=== PATIENT | female | born 2005 | race African-American/Black ===

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

== ENCOUNTER 2023-03-11 13:25 | Outpatient (CLI) | payer BC, SELFPAY ==
--- NOTE | ~2023-03-11 | MR_ITS ---
MRI of the left knee Clinical history: Pain Technique: Coronal proton density and proton density-weighted images, sagittal proton-density and T2 fat-sat images, and axial proton-density fat-saturated images were acquired. Findings: There is complete tear at the proximal to midportion of the ACL. Posterior cruciate ligamen t is intact. Medial collateral ligament and the lateral collateral ligament complex are intact. Popli teus tendon is intact. There is an oblique tear of the posterior horn of the medial meniscus. No lateral meniscal tear seen. There are focal transchondral impaction injuries at the central aspect of the lateral femoral condyle and posterolateral tibial plateau, consistent with recent pivot shift injury. Additional focal contu claus present at the posterior medial tibial plateau. Patellofemoral articular cartilage is well prese rved. Extensor mechanism is intact. Small joint effusion is present. No Aleman's cyst. Impression: Complete ACL tear at the proximal to midportion. Oblique tear of the posterior horn of the medial meniscus. Transchondral impaction injuries at the central aspect of the lateral femoral condyle and posterolate ral tibial plateau, consistent with recent pivot shift injury. Additional focal bone contusion at the posterior medial tibial plateau. Small joint effusion. Reviewed, dictated and finalized at [facility]. Impression: Complete ACL tear at the proximal to midportion. Oblique tear of the posterior horn of the medial meniscus. Transchondral impaction injuries at the central aspect of the lateral femoral c ondyle and posterolateral tibial plateau, consistent with recent pivot shift in [facility]. Additional focal bone contusion at the posterior medial tibial plateau. Small joint effusion.
== END 2023-03-11 13:26 | disposition home or self-care (01) ==
PROVIDERS: PCP Pediatrics; Visit Provider Orthopaedic Surgery
DX: S83.512A Sprain of anterior cruciate ligament of left knee, initial encounter (principal); X58.XXXA Exposure to other specified factors, initial encounter; M25.462 Effusion, left knee
CPT/HCPCS: 73721

== ENCOUNTER 2024-11-08 09:57 | Emergency (ER) | payer BC, SELFPAY ==
--- NOTE | ~2024-11-08 | XR_ITS ---
Right foot Technique: AP, oblique, and lateral views were obtained. Clinical History: Injury Findings: No acute fracture or dislocation is seen. Osseous alignment is anatomic. Joint spaces are p reserved without erosive or degenerative change. Soft tissues are unremarkable. Impression: Unremarkable right foot radiographs. Reviewed, dictated and finalized at location . Impression: Unremarkable right foot radiographs.
--- NOTE | 2024-11-08 09:59 | ED.LOWEXIN ---
HPI - Extremity Injury (Lower) General Chief Complaint: Extremity Injury, Lower Stated Complaint: RT Foot Injury Time Seen by Provider: 11/08/24 09:59 Source: patient Mode of arrival: ambulatory Limitations: no limitations History of Present Illness HPI Narrative: Shweta is a 19-year-old female patient presenting to the clinic today with complaints of right foot injury 2 days. She reports she was lifting weights and dropped a 45 lb weight plate on the top of her right foot. Is having pain to the 1st and 2nd metatarsals. Pain is worse with movement. Rates her pain as 6/10 with movement and bearing weight. Has been taking ibuprofen and icing the area Related Data Allergies Allergy/AdvReac Type Severity Reaction Status Date / Time No Known Allergies Allergy Verified 11/08/24 10:05 Review of Systems Review of Systems: Pertinent positives per HPI. Patient denies any fever, chills, rash, headache, visual changes, dizziness, cough, runny nose, sore throat, shortness of breath, chest pain, palpitations, nausea, vomiting, diarrhea, constipation, abdominal pain, or any urinary issues. [facility] Past Medical History Medical History Patient denies significant medical history Social History Social History Smoking status: Never smoker Gender identity (if verbalized by the patient): Female Comments At the time of my signature, I reviewed and agree with the nursing past medical, surgical, social, and family history. There is no relevant family history pertinent to the patient complaint. Exam Narrative: General: Well-developed, well nourished, in no apparent distress Head: Normocephalic, atraumatic. Cardio: Regular rate and rhythm, s1 and s2 normal, no murmur appreciated. Resp: Clear to auscultation bilaterally, no rhonchi, rales, wheezing or rubs. Musculoskeletal: No deformity, mild bruising noted over the dorsal medial foot, tender to palpation over the 1st and 2nd metatarsals, and some discomfort with flexion and extension of the toes as well as dorsal flexion and plantar flexion of the right foot, grossly normal range of motion, muscle strength strong and equal, peripheral pulse strong, no edema, no cyanosis, normal gait and station Course Course Emergency Course: Portions of this record may have been created with voice recognition software. Level of Care: Express Care Visit Vital Signs Vital signs: Vital Signs Temperature 36.8 C 11/08/24 10:06 Pulse Rate 67 11/08/24 10:06 Respiratory Rate 18 11/08/24 10:06 Blood Pressure 127/69 11/08/24 10:06 Pulse Oximetry 99 11/08/24 10:06 Oxygen Delivery Room Air 11/08/24 10:06 Temperature 36.8 C 11/08/24 10:06 Pulse Rate 67 11/08/24 10:06 Respiratory Rate 18 11/08/24 10:06 Blood Pressure 127/69 11/08/24 10:06 Pulse Oximetry 99 11/08/24 10:06 Oxygen Delivery Room Air 11/08/24 10:06 Vital signs reviewed MDM - Extremity Injury (Lower) MDM Narrative Medical decision making narrative: At the time of visit patient is resting comfortably on the exam table. Patient appears to be nontoxic. Diagnostics: X-ray of the right foot was performed and was negative in the clinic today. Plan: Suspect patient has a foot contusion. Supportive measures were discussed with the patient and they voiced understanding discharge instructions and agrees to treatment plan. Return precautions reviewed Differential Diagnosis Differential diagnosis: Likely fracture of toe and other (Foot fracture, foot sprain, contusion, soft tissue injury, tendinitis) Imaging Data Radiologist's impression: ITS Impressions Foot X-Ray 11/08/24 10:21 Impression: Unremarkable right foot radiographs. Discharge Plan Discharge Clinical Impression: Contusion of foot Qualifiers: Encounter type: initial encounter Laterality: right Qualified Code(s): S90.31XA - Contusion of right foot, initial encounter Patient Disposition: Home Condition: Stable Instructions: Antibiotic Form, Foot Contusion (ED) Additional Instructions: X-rays negative for any sign of fracture or malalignment of the right foot. Rest, ice, and elevate Tylenol/motrin for pain as discussed. Gradually bear weight Follow up with your PCP if symptoms persist more than 1 week. Patient Language: Yakut Prescriptions: No Action famotidine [Pepcid] 20 mg tablet 20 mg PO DAILY Qty: 14 0RF ibuprofen [IBU] 600 mg tablet 600 mg PO Q6H PRN (Reason: pain) Qty: 20 0RF ondansetron 4 mg tablet,disintegrating 4 mg PO Q6H PRN (Reason: nausea and vomiting) Qty: 10 0RF prochlorperazine maleate [Compazine] 5 mg tablet 5 mg PO Q8H PRN (Reason: nausea and vomiting) Qty: 7 0RF Follow-up/Referrals: Davi,MD Edouard [Primary Care Provider] - Time of Disposition: 10:26 Quality NIHSS Nursing Documentation ED NIHSS nursing documentation: reviewed/agree
[2024-11-08 10:06] VITALS: BP 127/69; PULSE 67; RESP 18; TEMP 36.8; O2SAT 99
--- OUTSIDE RECORDS SUMMARY | 2024-11-08 11:13 | XMS_ITS | Clinical Summary ---
Author Organization [facility] Address [address] [place] [address] Care Team Providers Care Wooden Furniture Polisher Name Role Phone Andrew Roberts MD Unavailable [phone] Edouard Tomlinson MD Primary Care Provider [phone] Allergies No known active allergies Medications albuterol HFA (PROVENTIL HFA,VENTOLIN HFA,PROAIR HFA) 90 mcg/actuation inhaler Inhale 1-2 puffs 5 Active aspirin 325 mg tabletIndicatio ns:Complete tear of right ACL, subsequent encounter Take 1 tablet (325 mg total) by mouth 2 (two) times a day 28 tablet 3 Active Additional Information Patient not taking.Reported on 03/31/2024 ondansetron (ZOFRAN) 4 mg tabletIndicatio ns:Complete tear of right ACL, subsequent encounter Take 1 tablet (4 mg total) by mouth every 8 (eight) hours as needed for nausea or vomiting 20 tablet 3 Active Additional Information Patient not taking.Reported on 03/31/2024 medroxyPROGESTE Osmin 150 mg/mL injection Inject 1 mL (150 mg total) into the muscle as instructed every 3 (three) months Active naloxone (NARCAN) 4 mg/actuation spray,non-aeros ol Administer 1 spray into affected nostril(s) as needed for opioid reversal or respiratory depression Call 911. Administer a single spray in one nostril. Repeat every 3 minutes as needed if no or minimal response. 1 each 3 Active Additional Information Patient not taking.Reported on 02/15/2024 ibuprofen (ADVIL,MOTRIN) 400 mg tablet Take 1 tablet (400 mg total) by mouth every 6 (six) hours as needed for pain Active aspirin 325 mg tabletIndicatio ns:Chronic pain of left knee Take 1 tablet (325 mg total) by mouth 2 (two) times a day 28 tablet 4 Active Additional Information Patient not taking.Reported on 03/31/2024 ondansetron (ZOFRAN) 4 mg tabletIndicatio ns:Chronic pain of left knee Take 1 tablet (4 mg total) by mouth every 8 (eight) hours as needed for nausea or vomiting 20 tablet 4 Active Additional Information Patient not taking.Reported on 03/31/2024 HYDROcodone-licha taminophen (NORCO) 7.5-325 mg per tabletIndicatio ns:Pain Take 1 tablet every 6 hours as needed for severe pain. 28 tablet 4 Active Additional Information Patient not taking.Reported on 03/31/2024 traMADoL (ULTRAM) 50 mg tabletIndicatio ns:Chronic pain of left knee Take 1 tablet (50 mg total) by mouth every 6 (six) hours as needed for pain (as needed for moderate pain) 28 tablet 4 Active Additional Information Patient not taking.Reported on 03/31/2024 Active Problems Problem Noted Date Diagnosed Date Bucket-handle tear of latera l meniscus of left knee as current injury 02/14/2024 S/P medial meniscus repair of left knee 05/11/20 23 Aftercare for anterior cruciate ligament (ACL) r epair 05/11/2023 Complete tear of right ACL, subsequent encounter 05/11/2023 Chronic pain of left knee 05/11/2023 Sprain of anterior cruciate ligament of left kne e 03/17/2023 Acute tear of posterior aspe ct of medial meniscus of left knee 03/17/2023 Closed Salter-Hu type I fracture of distal end of right fibula 07/06/2016 Phalanx fracture, foot 03/21/2013 Encounters Date Type Department Care Team Description 10/17/2024 Telephone [facility] Orthopedics and Sports Medicine [facility] [address] [address] Andrew Roberts MD from Last 3 Months Surgical History Surgery Date Site/Laterality Comments TONSILLECTOMY WISDOM TOOTH EXTRACTION ARTHROSCOPIC REPAIR ACL 03/30/2023 Left Left knee arthroscopy with anterior cruciate ligament reconstruction with patella tendon autograft Medical History Medical History Date Comments Asthma seasonal Chronic pain of left knee PONV (postoperative nausea and vomiting) Last menstrual period (LMP) > 10 days ago 12/15/23 Social History Tobacco Use Types Packs/Day Years Used Date Smoking Tobacco: Never Smokeless Tobacco: Never Tobacco Cessation:Counseling Given: Not Answered AUDIT-C Answer Date Recorded Q1: How often do you have a drink containing alc ohol? Never 02/16/2024 Q2: How many drinks containi ng alcohol do you have on a typical day when you are drinking? 1 or 2 02/16/2024 Q3: How often do you have six or more drinks on one occasion? Never 02/16/2024 Personal Safety Answer Date Recorded Have you ever been in or are you currently in a harmful physical or emotional relationship or is someone making you feel afraid or unsafe? 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 Gender Identity Not on file Sexual Orientation Not on file Obstetrics History Last Filed Vital Signs Vital Sign Reading Time Taken Comments Blood Pressure 125/76 02/16/2024 11:40 AM CDT Pulse 52 02/16/2024 11:40 AM CDT Temperature 37.1 C (98.7 F) 02/16/2024 9:48 AM CDT Respiratory Rate 16 02/16/2024 11:40 AM CDT Oxygen Saturation 98% 02/16/2024 11:40 AM CDT Inhaled Oxygen Concentration - - Weight 71.7 kg (158 lb) 03/31/2024 11:38 AM CDT Height 177.8 cm (5' 10) 03/31/2024 11:38 AM CDT Body Mass Index 22.67 03/31/2024 11:38 AM CDT Plan of Treatment Health Maintenance Due Date Last Done Comments Cervical Cancer Screening 2003 Depression Screening 2003 Hepatitis C Screening 2003 Meningococcal B Vaccine (2 o f 2 - Bexsero SCDM 2-dose series) 11/07/2019 05/08/2019 Regular Well Visit/Exam 18-64 2021 DTaP/Tdap/Td Vaccine (7 - Td or Tdap) 01/03/2024 01/02/2014, 10/03/2008, 05/12/2005, Additional history exists Influenza Vaccine (Season Ended) 2025 03/05/20 14, 04/04/2013 Hepatitis B Screening Completed 2003 , 2003, 2003 Pneumococcal vaccine <65 Completed 005, 05/12/2005, 03/26/2004, Additional history exists Varicella Vaccines Completed 01/02/2014, 03/26/2004 HPV Vaccines Completed 07/06/2014, 10/2013, 01/02/2014 Meningococcal Vaccine Completed 05/08/2019, 015 Medical Devices Implanted Type Area Biofuels Technology Manager Device Identifier Shelf Expiration Date Model / Serial / Lot [employer] Meniscal Cinch Curve Device Suturing Sterile Disposable Ar-4500 - [id number] Implanted:Qty: 1 on 03/30/2023 by Andrew Roberts MD at [facility] [employer] [id number] 04/29/2025 AR-4500 / / [id number] [employer] Meniscal Cinch Curve Device Suturing Sterile Disposable Ar-4500 - [id number] Implanted:Qty: 1 on 03/30/2023 by Andrew Roberts MD at [facility] [employer] [id number] 06/30/2025 AR-4500 / / [employer] Meniscal Cinch Curve Device Suturing Sterile Disposable Ar-4500 - [id number] Implanted:Qty: 1 on 03/30/2023 by Andrew Roberts MD at [facility] [employer] [id number] 07/28/2026 AR-4500 / / [id number] [employer] 8mm 20mm Cannulated Sheath Acl Pcl Screw Interference Titanium Ar-1380e - [id number] Implanted:Qty: 1 on 03/30/2023 by Andrew Roberts MD at [facility] [employer] [id number] 06/30/2027 AR-1380E / / [id number] [employer] Bio-Interference 9mm 20mm Cannulated Acl Pcl Screw Interference Ar-1390 - [id number] Implanted:Qty: 1 on 03/30/2023 by Andrew Roberts MD at [facility] [employer] [id number] 08/28/2026 AR-1390 / / Insurance [facility] PLAN COMMERCIAL GENERIC Member Subscriber Plan / Payer (Ef fective 2022-Present) Name:Shweta Davis Member ID:[id number] 4 Relation to Subscriber:Self Name:Shweta Davis Subscriber ID:[id number] Payer ID:[id number] Group ID:Not on file Type:COMMERCIAL Address: [facility]IC [employer]IDENT MEDICAL [facility]GRAM [address] [address] [place] [address] IDPA IDPA Care Teams Wooden Furniture Polisher Relationship Specialty Start Date End Date Edouard Tomlinson MD [address] [facility] [place] [address] PCP - General Family Medicine 01/05/24 Andrew Roberts MD [address] [place] [address] Consulting Physician Orthopedic Surgery 03/30/23
--- OUTSIDE RECORDS SUMMARY | 2024-11-08 11:13 | XMS_ITS | Referral Summary ---
Author Organization [facility] [address] Address [address] [place] [address] Care Team Providers Care Adzing And Boring Machine Helper Name Role Phone Andrew Roberts MD Unavailable Edouard Tomlinson MD Primary Care Provider [phone] Encounters Date Type Department Care Team Description 10/17/2024 Telephone [facility] Orthopedics and Sports Medicine [address] [place] [phone] Andrew Roberts MD from Last 3 Months Allergies No known active allergies Medications albuterol [...] right fibula 07/06/2016 Phalanx fracture, foot 03/21/2013 Social History Tobacco Use Types Packs/Day Years [...] on file 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 Gender Identity Not on file Sexual Orientation Not on file Last Filed Vital Signs Vital Sign Reading [...] 03/31/2024 11:38 AM CDT Plan of Treatment Not on file Medical Devices Implanted Type Area Forensic Psychiatrist Device Identifier Shelf Expiration Date Model / Serial / Lot [employer] Meniscal Cinch Curve Device Suturing Sterile Disposable Ar-4500 - [id number] Implanted:Qty: 1 on 03/30/2023 by Andrew Roberts MD at [facility] [employer] [id number] 04/29/2025 AR-4500 / / [id number] [employer] Meniscal Cinch Curve Device Suturing Sterile Disposable Ar-4500 - [id number] Implanted:Qty: 1 on 03/30/2023 by Andrew Roberts MD at [facility] [employer] [id number] 06/30/2025 AR-4500 / / [employer] Meniscal Cinch Curve Device Suturing Sterile Disposable Ar-4500 - [id number] Implanted:Qty: 1 on 03/30/2023 by Andrew Roberts MD at [facility] [employer] [id number] 07/28/2026 AR-4500 / / [id number] [employer] 8mm 20mm Cannulated Sheath Acl Pcl Screw Interference Titanium Ar-1380e - [id number] Implanted:Qty: 1 on 03/30/2023 by Andrew Roberts MD at [facility] [employer] [id number] 06/30/2027 AR-1380E / / [id number] [employer] Bio-Interference 9mm 20mm Cannulated Acl Pcl Screw Interference Ar-1390 - [id number] Implanted:Qty: 1 on 03/30/2023 by Andrew Roberts MD at [facility] [employer] [id number] 08/28/2026 AR-1390 / / Insurance [facility] PLAN COMMERCIAL GENERIC Member Subscriber Plan / Payer (Ef fective 2022-Present) Name:Shweta Davis Member ID:[id number] 4 Relation to Subscriber:Self Name:Shweta Davis Subscriber ID:[id number] Payer ID:[id number] Group ID:Not on file Type:COMMERCIAL Address: ATTN [facility] [employer] MEDICAL [employer]GRAM [address] [address] [place] [address] IDPA IDPA Care Teams Adzing And Boring Machine Helper Relationship Specialty Start Date End Date Edouard Tomlinson MD [address] [place] [address] [place] [address] PCP - General Family Medicine 01/05/24 Andrew Roberts MD [facility] [place] [address] Consulting Physician Orthopedic Surgery 03/30/23
== END 2024-11-08 10:28 | disposition home or self-care (01) ==
PROVIDERS: Emergency Provider Nurse Practitioner Family; PCP Family Medicine
DX: S90.31XA Contusion of right foot, initial encounter (principal); W20.8XXA Other cause of strike by thrown, projected or falling object, initial encounter
CPT/HCPCS: 73630; 99213; G0463

== ENCOUNTER 2025-03-22 16:24 | Emergency (ER) | payer BC, SELFPAY ==
[2025-03-22 16:31] VITALS: BP 125/82; PULSE 70; RESP 18; TEMP 36.9; O2SAT 99
--- NOTE | 2025-03-22 16:35 | ED.EYEPROB ---
HPI - Eye Problem General Chief complaint: Eye Problems Stated complaint: RT Eye Problem Time Seen by Provider: 03/22/25 16:35 Source: patient and RN notes reviewed Mode of arrival: ambulatory Limitations: no limitations History of Present Illness HPI Narrative: 20-year-old female presents concern for right upper eyelid redness and tenderness. She denies vision changes, itching, drainage. She reports some she woke up like this. She denies injury. She does not wear contact lenses. She did not get anything in her eye. She reports her work made her get her eye seen. chief complaint: other (eyelid redness) Related Data Allergies Allergy/AdvReac Type Severity Reaction Status Date / Time No Known Allergies Allergy Verified 03/22/25 16:31 Review of Systems Review of Systems: CONSTITUTIONAL: Denies malaise, chills, sweats, or fever. EYES: Denies visual changes. Denies redness, irritation, discharge. Reports right upper eyelid swelling and mild tenderness ENT: Denies rhinorrhea, congestion, sinus pain, otalgia or sore throat. SKIN: Denies rash or itching. NEUROLOGIC: Denies numbness, weakness, or headache. PSYCHIATRIC: Denies anxiety or depression. All systems reviewed & are unremarkable except as noted in HPI and below PMFSH Past Medical History Medical History Patient denies significant medical history Social History Social History Smoking status: Never smoker Gender identity (if verbalized by the patient): Female Comments At time of signature, agree with nursing past medical, surgical, social and family history. There is no relevant family history pertinent to the presenting complaint Exam Narrative: GENERAL: Well-appearing, well-nourished, and in no acute distress. HEAD: Normocephalic, atraumatic. EYES: PERRLA, sclera clear, and EOMI. No nystagmus. Bilateral conjunctivae injected. Upper and lower eyelid unremarkable, no periorbital edema noted ENT: Nares clear, turbinates pink, no rhinorrhea or epistaxis. Mucous membranes moist. TM pearly barboza with sharp light reflex bilaterally; no tragal tenderness. NECK: Supple. CHEST: No respiratory distress. Speaks in full sentences. HEART: Regular rate and rhythm. SKIN: Warm, dry, no visible rash. NEURO: Alert and oriented x3. PSYCH: Normal mood and affect Course Course Emergency Course: Patient is aware of diagnosis, understands and agrees to treatment plan. Anticipatory guidance given. Patient agrees to follow-up as directed and is aware of reasons to seek care at the emergency department. Portions of this record may have been created with voice recognition software Level of Care: Express Care Visit Vital Signs Vital signs: Vital Signs Temperature 98.4 F 03/22/25 16:31 Pulse Rate 70 03/22/25 16:31 Respiratory Rate 18 03/22/25 16:31 Blood Pressure 125/82 03/22/25 16:31 Pulse Oximetry 99 03/22/25 16:31 Oxygen Delivery Room Air 03/22/25 16:31 Temperature 98.4 F 03/22/25 16:31 Pulse Rate 70 03/22/25 16:31 Respiratory Rate 18 03/22/25 16:31 Blood Pressure 125/82 03/22/25 16:31 Pulse Oximetry 99 03/22/25 16:31 Oxygen Delivery Room Air 03/22/25 16:31 Reviewed. MDM - Eye Problem MDM Narrative Medical decision making narrative: Consideration of the following conditions may be warranted for the presenting problem, they are not final diagnoses: Bacterial conjunctivitis, allergic conjunctivitis, viral conjunctivitis, foreign body, blepharitis, chalazion, hordeolum, corneal abrasion, preseptal cellulitis, orbital cellulitis. No evidence of proptosis, ophthalmoplegia, vision loss, pain with eye movement. Exam findings show no acute concerns or changes; patient is non-toxic appearing and is in no distress. Patient is appropriate for outpatient treatment and follow-up. Critical Care Time Critical Care Time Critical Care Time: No Discharge Plan Discharge Clinical Impression: Hordeolum Patient Disposition: Home Condition: Stable Instructions: Rosie (ED) Additional Instructions: Do not touch or rub your eye. Use a warm washcloth on your eye often throughout the day Use eyedrops as directed You may take Tylenol or ibuprofen for pain Follow-up with PCP or jewel blocker and sawyer if condition is not improving in 1 week Go to the emergency room if you have pain behind your eye, pressure behind your eye, difficulty seeing, or other severe symptoms Patient Language: Telugu Prescriptions: New polymyxin B sulf-trimethoprim 10,000 unit- 1 mg/mL drops 1 drp RIGHT EYE Q3H 7 Days Qty: 10 0RF Rx Instructions: while awake; do not exceed 6 doses in 24 hours Follow-up/Referrals: PHYSICIAN,FIBER ARTIST [Primary Care Provider, Internal Medicine] Stand Alone Forms: Work/School Release IP Time of Disposition: 16:40
--- OUTSIDE RECORDS SUMMARY | 2025-03-22 16:48 | XMS_ITS | Clinical Summary ---
Author Organization [facility] Address [address] [place] [address] Care Team Providers Care Biostatistics Director Name Role Phone Andrew Roberts MD Unavailable [phone] Edouard Tomlinson MD Primary Care Provider [phone] Allergies No known active allergies Medications albuterol HFA (PROVENTIL HFA,VENTOLIN HFA,PROAIR HFA) 90 mcg/actuation inhaler Inhale 1-2 puffs 09/26/2014 Active Active Problems Problem Noted Date Diagnosed Date [...] Encounters Date Type Department Care Team Description 01/05/2025 11:45 AM CDT Office Visit [facility] Medical Group Orthopedics and Sports Medicine [address] [place] [phone] Andrew Roberts MD Chronic pain of left knee (Primary Dx) from Last 3 Months Surgical History Surgery [...] on file 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 Gender Identity Not on file Sexual Orientation [...] 10/03/2008, 05/12/2005, Additional history exists Influenza Vaccine (#1) 2025 03/05/2014, 2012 Hepatitis B Screening Completed 2003 , 2003, 2003 Pneumococcal vaccine <65 Completed 005, 05/12/2005, 03/26/2004, Additional history exists Varicella Vaccines Completed 01/02/2014, 03/26/2004 HPV Vaccines Completed 07/06/2014, 10/2013, 01/02/2014 Medical Devices Implanted Type Area Web Interface Developer Device Identifier Shelf Expiration Date Model / Serial / Lot [employer] Meniscal Cinch Curve Device Suturing Sterile Disposable Ar-4500 - [id number] Implanted:Qty: 1 on 03/30/2023 by Andrew Roberts MD at [facility] [employer] [id number] 04/29/2025 AR-4500 / / [id number] [employer] Meniscal Cinch Curve Device Suturing Sterile Disposable Ar-4500 - [id number] Implanted:Qty: 1 on 03/30/2023 by Andrew Roberts MD at [facility] [employer] [id number] 06/30/2025 AR-4500 / / [employer] Meniscal Cinch Curve Device Suturing Sterile Disposable Ar-4500 - [id number] Implanted:Qty: 1 on 03/30/2023 by Andrew Roberts MD at [facility] [employer] [id number] 07/28/2026 AR-4500 / / [id number] [employer] 8mm 20mm Cannulated Sheath Acl Pcl Screw Interference Titanium Ar-1380e - [id number] Implanted:Qty: 1 on 03/30/2023 by Andrew Roberts MD at [facility] [employer] [id number] 06/30/2027 AR-1380E / / [id number] [employer] Bio-Interference 9mm 20mm Cannulated Acl Pcl Screw Interference Ar-1390 - [id number] Implanted:Qty: 1 on 03/30/2023 by Andrew Roberts MD at [facility] [employer] [id number] 08/28/2026 AR-1390 / / Insurance [facility] PLAN COMMERCIAL GENERIC Member Subscriber Plan / Payer (Ef fective 2022-Present) Name:Shweta Davis Member ID:[id number] 4 Relation to Subscriber:Self Name:Shweta Davis Subscriber ID:[id number] Payer ID:[id number] Group ID:Not on file Type:COMMERCIAL Address: [facility] BASIC ACCIDENT MEDICAL PROGRAM [address] [address] [place] [address] IDPA MRA Member Subscriber Plan / Payer (Ef fective for All Dates) Name:Shweta Davis Member ID:[id number] Relation to Subscriber:Self Name:Ryan Shweta Pineda Subscriber ID:[id number] Payer ID:Not on file Group ID:Not on file Type:OTHER Address: [address] [place] [address] Care Teams Biostatistics Director Relationship Specialty Start Date End Date Edouard Tomlinson MD [address] [facility] [place] [address] PCP - General Family Medicine 01/05/24 Andrew Roberts MD [address] [facility] [address] [address] Consulting Physician Orthopedic Surgery 03/30/23
== END 2025-03-22 16:43 | disposition home or self-care (01) ==
PROVIDERS: Emergency Provider Nurse Practitioner
DX: H00.011 Hordeolum externum right upper eyelid (principal)
CPT/HCPCS: 99213; G0463